=== PATIENT | male | born 1930 | race Caucasian/White ===

== ENCOUNTER 2018-01-09 16:58 | Observation (INO) ==
[2018-01-09] MEDS ORDERED: ALBUTEROL/IPRATROPIUM 2.5mg-0.5mg/3ml NEB AEROSOL ONE (17:26)
[2018-01-09] MEDS ORDERED: BENZONATATE 200 MG CAPSULE PO ONE (17:26)
--- NOTE | 2018-01-09 17:31 | Emergency Department Report ---
URI/Sore Throat HPI - General Chief Complaint: Upper Respiratory Infection Stated Complaint: poss pneumonia Time Seen by Provider: 01/09/18 17:20 Source: patient Mode of arrival: ambulatory Limitations: no limitations - History of Present Illness HPI Narrative: Pt presents with cough for about 4 days. Pt unsure of fever but has had chills. He denies N/V/D but states he has had a decrease in appetite. Denies CP, weakness, or joint pain. He reports he has taken [place], Delsym, cough drops and various other OTC medications with minimal relief. He also reports coug is worse when lying flat. MD Complaint: fever, cough Onset (ago): day(s) Duration: intermittent Severity: moderate Relieving factors: nothing Able to tolerate fluids by mouth: Yes Treatments prior to arrival: "cold medicine", other - Related Data Home Medications Medication Instructions Recorded Confirmed Aspirin [Ecotrin] 81 mg PO DAILY 01/09/18 01/09/18 Multivit-Min/FA/Lycopen/Lutein 1 each PO DAILY 01/09/18 01/09/18 [Centrum Silver Tablet] Pravastatin [Pravachol] 20 mg PO HS 01/09/18 01/09/18 Allergies Allergy/AdvReac Type Severity Reaction Status Date / Time No Known Allergies Allergy Unknown Verified 01/09/18 17:28 Review of Systems All systems: reviewed and negative except as stated Constitutional: Reports: as per HPI Cardiovascular: Reports: as per HPI Respiratory: Reports: as per HPI Gastrointestinal: Reports: as per HPI Musculoskeletal: Reports: as per HPI Neurological: Reports: headache [facility] Medical History (Last Updated 01/09/18 @ 15:42 by NIRAJ Garcia) Heart attack (Chronic Medical) 1982 High cholesterol (Chronic Medical) Macular degeneration (Chronic Medical) Surgical History: *back surgery. * Hernia Repairs x 4 - Left side hernia Family History: Family History (Last Updated 01/09/18 @ 15:44 by NIRAJ Garcia) Brother H/O heart bypass surgery Sister Diabetes mellitus Father CHF (congestive heart failure) - Social History Smoking status: Former smoker Physical Exam Pt verbal appropriate and cooperative with assessment however pt appears to be somewhat SOA when talking and seems uncomfortable sitting on side of bed despite negative verbal responses when asked about particular symptoms - Limitations Limitations: no limitations - General General appearance: alert, in distress - Normal Exams: Head:: Normocephalic without trauma Neck:: Full range of motion, without adenopathy Cardiovascular:: Regular rate and rhythm, without murmur or gallop, Pulses 2+ all extremities Abdomen:: Bowel sounds positive, soft, non-tender, non-distended Musculoskeletal:: No tenderness, or deformity noted, good range of motion, all extremities Integumentary:: No rashes Neurological:: Patient is alert, and oriented, cranial nerves, motor/sensory/ cerebellar, exams w/o gross deficits, to observation Psychiatric:: Patient exhibits, appropriate attention, emotion and affect - Expanded Respiratory Exam Location: Left: rhonchi, Right: rhonchi, Lower: rhonchi Course Vital Signs Temperature 98.3 F 01/09/18 17:02 Pulse Rate 92 01/09/18 17:02 Respiratory Rate 24 01/09/18 17:02 Blood Pressure 147/82 H 01/09/18 17:02 Pulse Oximetry 93 01/09/18 17:02 Temperature 98.3 F 01/09/18 17:02 Pulse Rate 92 01/09/18 17:02 Respiratory Rate 30 H 01/09/18 17:38 Blood Pressure 147/82 H 01/09/18 17:02 Pulse Oximetry 93 01/09/18 17:38 Upper Respiratory Infection - MDM Narrative Medical decision making narrative: Labs, X ray, and EKG reviewed. Pt reports no relief from Duoneb. Post Duoneb assessment shows no change in lung sounds. Pt requiring 1.5 L per NC while at rest. Iv Lasix provided. Influenza negative. Pt to be admitted observation to Dr Briceno for CHF exacerbation. Findings and plan discussed with pt and family who voice agreement and understanding of plan and current treatment. - Differential Diagnosis Differential diagnosis: Likely: upper respiratory infection, sinusitis, viral infection, bronchitis, influenza, pharyngitis - Lab Data Attestation: I reviewed the patient's lab results. Result diagrams: 01/09/18 17:36 01/09/18 17:36 Lab Results 01/09/18 01/09/18 01/09/18 Range/Units 17:36 17:36 18:23 WBC 5.9 (4.5-11.0) T/MM3 RBC 4.38 L (4.50-5.90) M/MM3 Hgb 14.3 (13.5-17.5) GM/DL Hct 43.0 (41-53) % MCV 98.2 (80-100) UM3 MCH 32.6 (26-34) UUG MCHC 33.3 (31-37) GM/DL RDW Std Deviation 46.0 (36.9-50.2) FL Plt Count 178 (130-400) T/MM3 MPV 9.8 (9.4-12.4) UM3 Immature Gran % (Auto) 0.2 (0.0-0.5) % Neut % (Auto) 61.4 (33-66) % Lymph % (Auto) 20.7 L (23-45) % [place] % (Auto) 16.7 H (0-9.0) % Eos % (Auto) 0.3 (0-4) % Baso % (Auto) 0.7 (0-2) % Neut # (Auto) 3.7 (1.8-7.7) T/MM3 Lymph # (Auto) 1.2 (1-4.8) T/MM3 [place] # (Auto) 1.0 H (0-0.8) T/MM3 Eos # (Auto) 0.0 (0-0.5) T/MM3 Baso # (Auto) 0.0 (0-0.2) T/MM3 Abs Immat Gran (auto) 0.01 (0.00-0.03) T/MM3 Turbidity < 20 (0-20) Sodium 145 H (134-144) MEQ/L Potassium 3.5 L (3.6-5) MEQ/L Chloride 101 (98-107) MEQ/L Carbon Dioxide 29 (22-30) MEQ/L Anion Gap 15 (5-15) MEQ/L BUN 11.0 (9-20) MG/DL Creatinine 0.8 (0.8-1.5) MG/DL GFR Calculation 92 BUN/Creatinine Ratio 14 (6-26) RATIO Glucose 124 H (75-110) MG/DL Calculated Osmolality 279 (261-280) MOSM/KG Calcium 9.5 (8.4-10.2) MG/DL Total Bilirubin 0.70 (0.20-1.30) MG/DL Icterus Index < 2 (0-7) AST 40 (17-59) U/L ALT 43 (21-72) U/L Alkaline Phosphatase 66 (38-126) U/L B-Natriuretic Peptide 234 H (0-175) pg/mL Total Protein 8.3 H (6.3-8.2) G/DL Albumin 4.6 (3.5-5.0) G/DL Globulin 3.7 H (2.4-3.6) G/DL Albumin/Globulin Ratio 1.2 (1.1-2.2) RATIO Specimen Hemolysis < 15 (0-25) Influenza Type A (PCR) Negative (Negative) Influenza Type B (PCR) Negative (Negative) - Radiology Data Attestation: I reviewed the patient's radiology results. (read per Dr Davis with perihilar fluid) - EKG Data EKG #1 EKG attestation: Yes: I reviewed and interpreted this EKG. EKG results narrative: old inferior OR, known history EKG shows normal: sinus rhythm Rate: normal Rhythm: NSR Disposition Clinical Impression: Acute exacerbation of CHF (congestive heart failure) Qualifiers: Heart failure type: unspecified Qualified Code(s): I50.9 - Heart failure, unspecified Disposition: 02 To [facility] Acute Care Condition: Improved Prescriptions: No Action Aspirin [Ecotrin] 81 mg PO DAILY Multivit-Min/FA/Lycopen/Lutein [Centrum Silver Tablet] 1 each PO DAILY Pravastatin [Pravachol] 20 mg PO HS Referrals: Josias Nelson MD [Primary Care Provider] - Time of Disposition: 19:20 - Seen By: midlevel
--- OUTSIDE RECORDS SUMMARY | 2018-01-09 18:06 | External Medical Summary | Continuity of Care Document ---
:1930 Author Organization [facility] Allergies Active Description Code Type Severity Reaction Onset Reported/ Identified Relationship Clinical to Patient Status Yes No Known NKMA N/A N/A 02/05/2015 Medication Allergies Medications There is no data. 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 12/03/2016 Josias Nelson Final M25.552 Pain in left hip V 06/03/2017 Josias Nelson E78.2 Mixed hyperlipidemia V 06/03/2017 Josias Nelson Final H35.30 Unspecified macular V degeneration 06/03/2017 Josias Nelson Final I25.10 Atherosclerotic heart V disease of [place] coronary artery without angina pectoris 06/03/2017 Josias Nelson M25.552 Pain in left hip V 06/03/2017 oJsias Nelson Z80.42 Family history of V malignant neoplasm of prostate Procedures Code Description [place] [address] Office or 05/28/2016 other outpatient visit for the evaluation and management of an established patient, which requires at least 2 of these 3 rachel components: A detailed history; A detailed examination; Medical d 73183 Office or 12/03/2016 other outpatient visit for the evaluation and management of an established patient, which requires at least 2 of these 3 rachel components: A detailed history; A detailed examination; Medical d 17046 Office or 06/03/2017 other outpatient visit for the evaluation and management of an established patient, which requires at least 2 of these 3 rachel components: A detailed history; A detailed examination; Medical d Results There is no data. Encounters ACCT No. Visit Discharge Status Pt. Type Provider Facility Loc./Unit Complaint Date/Time [id number] 06/03/2017 06/03/2017 [facility] CRMMP 82 13:12:00 23:59:00 Josias Saez Clinic [id number] 04/19/2017 04/19/2017 [facility], [facility] Wellness 25 14:28:00 23:59:00 Josais Saez Exam Clinic [id number] 12/03/2016 12/03/2016 [facility] Out[facility], [facility] 6 MONTH 58 13:04:00 23:59:00 Josias Saez CHECK Clinic [id number] 05/28/2016 05/28/2016 [facility] Outpatient [facility], [facility] 6mth rck 38 14:49:00 23:59:00 Josias Saez fu from Clinic 1.15.16 [id number] 11/29/2015 11/29/2015 [facility], [facility] NPT EST 98 13:03:00 23:59:00 Josias Saez CARE Clinic TRANSFER FROM DR BURLESON
--- OUTSIDE RECORDS SUMMARY | 2018-01-09 18:06 | External Medical Summary | Referral Summary ---
:1930 [facility] Address [address] [place] [address] [place] [address] Care Team Providers Name Role Phone Josias Nelson V Primary Care Physician Encounter VC Date(s): 12/03/16 - 12/03/16 [facility] [place] [phone] [place] Discharge Diagnosis: CAD (coronary artery disease) Discharge Diagnosis: Left hip pain Discharge Diagnosis: Hyperlipidemia Discharge Disposition: 01-Home or Self Care Attending Physician: Josias Nelson MD Admitting Physician: Josias Nelson MD Vital Signs Most recent to oldest [Reference Range]: 1 Peripheral Pulse Rate [60-100 bpm] 72 bpm (12/03/16 1:10 PM) Blood Pressure [90-140/60-90 mmHg] 120/70 mmHg (12/03/16 1:10 PM) Problem List Condition Effective Dates Status Health Status Informant CAD (coronary artery Active disease)(Confirmed) Cataracts(Confirmed) Active Angina/Chest pain(Confirmed)1981 Active Macular Degeneration(Confirmed) Active Deviated Nasal Septum(Confirmed) Active Dizziness & Active Giddiness(Confirmed) Hypertrophy Nasal Active Turbinates(Confirmed) Hyperlipidemia(Confirmed) Active 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 Unspec(Confirmed) Tinnitus Unspecified(Confirmed) Active 1--- Heart Attack [id number] 1981 Allergies, Adverse Reactions, Alerts No Known Medication Allergies Medications aspirin 81 mg oral tablet mg tabs, Oral, Daily, 0 Refill(s) Start Date: 11/29/15 Status: OrderedCentrum Silver Daily, 0 Refill(s) Start Date: 11/29/15 Status: Orderedpravastatin 20 mg oral tablet 20 mg 1 tabs, Oral, Daily, # 90 tabs, 2 Refill(s), Pharmacy: [id number], 1 tabs Oral Daily Start Date: 05/28/16 Status: Orderedtriamcinolone 0.1% topical cream kezia, Topical, TID, 0 Refill(s) Start Date: 11/29/15 Status: Ordered Results No data available for this section Immunizations No data available for this section Procedures Procedure Date Related Diagnosis Body Site Gall Bladder1 11/29/11 Laparoscopic cholecystectomy 2011 Colonoscopy - normal2 05/01/11 Full Thickness Skin Graft To Left Thumb3 08/15/09 I&D4, 5 08/15/09 Colonoscopy - 1 adenomatous polyp 2005 Arthroscopy right shoulder 2004 left cataract extraction 2002 lumbar laminectomy complicated by wound infection 2001 Colonoscopy - diverticuli 2000 Colonoscopy - hyperplastic polyps 1997 Colonoscopy - 1 adenomatous polyp 1996 Hospitalization6 1981 repeat right inguinal hernia repair 1980 right inguinal hernia repair 1962 left inguinal hernia repair 06/1931 ERCP7, 8 Miscellaneous9 [id number] 1Dr. Mceachern2- CSCOPE WNL, LIKELY NOT REPEAT IN 5 YRS AT AGE 81.3I&D; Full Thickness Skin Graft to Left Amypt0H&D; Full Thickness Skin Graft to Left [id number] inferior GE5IAYO, sphincterotomty 17933QLNU, sphincterotomy 45276Tyxm surg - laminectomy of 3 vertebrae of low back.(15-20 yrs ago, 1989') Hx hernia repair as small child, another about 1962, 2 subsequent surg. Most recent was Scrotal mass removed during one hernia repair -benign. GB removed (within past 10 years.)10ERCP, sphincterotomy 2011 Social History Social History Type Response Smoking Status Former smoker; Type: Cigarettes; Number of years: 35 Assessment and Plan Extracted from: Title: CDM-OV Author: Josias Nelson MD Date: 12/03/16 Impression and Plan Diagnosis CAD (coronary artery disease) (CTH57-WM I25.10, Discharge, Medical). Hyperlipidemia (YXT36-OC E78.2, Discharge, Medical). Orders Orders (Selected) Outpatient Orders Future (On Hold) Fasting Lipid Profile: .
--- OUTSIDE RECORDS SUMMARY | 2018-01-09 18:06 | External Medical Summary | Referral Summary ---
:1930 [facility] Address [address] [place] [address] [place] [phone] Care Team Providers Name Role Phone Josias Nelson V Primary Care Physician Encounter VC Date(s): 11/29/15 - 11/29/15 [facility] [place] [phone] Discharge Diagnosis: Discomfort of left hip Discharge Diagnosis: Age-related macular degeneration, wet, both eyes Discharge Diagnosis: Coronary artery disease Discharge Diagnosis: SCREENING FOR LIPOID DISORDERS Discharge Disposition: 01-Home or Self Care Attending Physician: Josias Nelson MD Admitting Physician: Josias Nelson MD Vital Signs Most recent to oldest [Reference Range]: 1 Temperature Tympanic [36.6-38.1 degC] 36 degC *LOW* (11/29/15 1:15 PM) Peripheral Pulse Rate [60-100 bpm] 77 bpm (11/29/15 1:15 PM) Blood Pressure [90-140/60-90 mmHg] 15/78 mmHg *LOW* (11/29/15 1:15 PM) Problem List No data available for this section Allergies, Adverse Reactions, Alerts No Known Medication Allergies Medications aspirin 81 mg oral tablet mg tabs, Oral, Daily, 0 Refill(s) Start Date: 11/29/15 Status: OrderedCentrum Silver Daily, 0 Refill(s) Start Date: 11/29/15 Status: OrderedNiaspan ER 500 mg oral tablet, extended release 1,000 mg 2 tabs, Oral, Bedtime (once a day), # 180 tabs, 0 Refill(s), Pharmacy: [id number], 2 tabs Oral Bedtime (once a day) Start Date: 09/25/15 Status: Orderedtriamcinolone 0.1% topical cream kezia, Topical, TID, 0 Refill(s) Start Date: 11/29/15 Status: Ordered Results No data available for this section Immunizations No data available for this section Procedures Procedure Date Related Diagnosis Body Site Miscellaneous1 1Back surg - laminectomy of 3 vertebrae of low back.(15-20 yrs ago, ) Hx hernia repair as small child, another about 1963, 2 subsequent surg. Most recent was Scrotal mass removed during one hernia repair -benign. GB removed (within past 10 years.) Social History Social History Type Response Smoking Status Former smoker; Type: Cigarettes; Number of years: 35 Assessment and Plan Extracted from: Title: Get acquainted Author: Josias Nelson MD Date: 11/29/15 Assessment/Plan Age-related macular degeneration, wet, both eyes Coronary artery disease Discomfort of left hip SCREENING FOR LIPOID DISORDERS Overall he seems to be stable and is generally doing well. He desires a conservative approach to care. He has advanced directives and says he would want "no heroic measures". 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 The hip discomfort is a little bit hard to characterize, I'm not sure it's entirely due to the hip joint. Considerations might include ligamentous concerns , radiculopathy, vascular claudication. At thi s point he is getting along pretty well and these had previous investigations without much benefit diagnostically. He was not interested in further workup and we will not do anything further at this point. Similarly, as we discussed coronary artery disease decided not to do any further workup. We will go ahead with a fasting lipid profile to be drawn another day sometime soon, and I suppose consideration of statin therapy if it normal. He will continue on an aspirin daily. Follow-up with me in 6 months or sooner if needed.
--- OUTSIDE RECORDS SUMMARY | 2018-01-09 18:06 | External Medical Summary | Referral Summary ---
:1930 Author [facility] Address [address] [place] [address] [place] [phone] Care Team Providers Name Role Phone Josias Nelson V Primary Care Physician Encounter [facility] [id number] Date(s): 05/28/16 - 05/28/16 [facility] [place] [phone] [place] Discharge Diagnosis: Macular Degeneration Discharge Diagnosis: CAD (coronary artery disease) Discharge Diagnosis: Hyperlipidemia Discharge Disposition: 01-Home or Self Care Attending Physician: Josias Nelson MD Admitting Physician: Josias Nelson MD Vital Signs Most recent to oldest [Reference Range]: 1 Temperature Tympanic [36.6-38.1 degC] 35.4 degC *LOW* (05/28/16 3:13 PM) Peripheral Pulse Rate [60-100 bpm] 74 bpm (05/28/16 3:13 PM) Blood Pressure [90-140/60-90 mmHg] 119/77 mmHg (05/28/16 3:13 PM) Problem List Condition Effective Dates Status Health Status Informant CAD (coronary artery Active disease)(Confirmed) Cataracts(Confirmed) Active Angina/Chest pain(Confirmed)1981 Active Macular Degeneration(Confirmed) Active Deviated Nasal Septum(Confirmed) Active Dizziness & Active Giddiness(Confirmed) Hyperlipidemia(Confirmed) Active Hypertrophy Nasal Active Turbinates(Confirmed) Inferior ME(Confirmed)2 Active Sensorineural Hearing Loss Active Unspec(Confirmed) Tinnitus Unspecified(Confirmed) Active 1--- Heart Attack [id number] 1981 Allergies, Adverse Reactions, Alerts No Known Medication Allergies Medications aspirin 81 mg oral tablet mg tabs, Oral, Daily, 0 Refill(s) Start Date: 11/29/15 Status: OrderedCentrum Silver Daily, 0 Refill(s) Start Date: 11/29/15 Status: Orderedpravastatin 20 mg oral tablet 20 mg 1 tabs, Oral, Daily, # 90 tabs, 2 Refill(s), Pharmacy: [facility], 1 tabs Oral Daily [...] inguinal hernia repair 06/1931 ERCP7, 8 Miscellaneous9 [id number] 1Dr. Mceachern2- CSCOPE WNL, LIKELY NOT REPEAT IN 5 YRS AT AGE 81.3I&D; Full Thickness Skin Graft to Left Axzoo1S&D; Full Thickness Skin Graft to Left [id number] inferior CK7DAZW, sphincterotomty 48633LYCP, sphincterotomy 35516Bgft surg - laminectomy of 3 vertebrae of [...] Assessment and Plan Extracted from: Title: CDM-OV * Author: Josias Nelson MD Date: 05/28/16 Impression and Plan Diagnosis CAD (coronary artery disease) (QFH35-FF I25.10, Discharge, Medical). Hyperlipidemia (EPP79-KQ E78.5, Discharge, Medical). Macular Degeneration (WTJ60-VO H35.30, Discharge, Medical). Dx/Order Association Plan
[2018-01-09] MEDS ORDERED: FUROSEMIDE 20 MG/2 ML INJECTION IVP ONE (19:05)
[2018-01-09] MEDS: SALINE FLUSH 10ml SYRINGE IVF PRN (19:11)
--- NOTE | 2018-01-09 19:18 | XRay Report ---
Indication: cough, fever XR chest 2V: Comparison: 11/29/2011 Technique: PA and lateral chest Findings: Patient continues to show similar heart size to the 2012 study. No new focal prequel consolidations are identified although there are just slightly heavier basilar markings present. Region continues to show minimal thickening along the minor fissure. Findings suggest chronic changes. No pleural effusions are noted. No significant congestive changes suggested. Degenerative changes persist in the mid and lower thoracic spine with bridging osteophytes and disc space narrowing. Impression: Overall patient continues to show similar chronic basilar changes some with no superimposed acute new findings. .
[2018-01-09 19:57] VITALS: BMI 31.0
[2018-01-09] MEDS ORDERED: ACETAMINOPHEN 325 MG TABLET PO PRN (20:38)
--- NOTE | 2018-01-09 20:39 | History & Physical Report ---
History of Present Illness Date: 01/09/18 Chief complaint: cough HPI: 87 yo M with PMH of CAD, HLD and distant [place] presented to the ED with worsening cough and orthopnea for 4 days. Patient has taken mulitple OTC medications with no relief. He reports every time he lies down he begins to cough, and he has not been able to sleep well for 4 days. He has tried sleeping in a chair with minimal relief. He denies fever/chills or productive cough. 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 denies CP associated with his symptoms. CXR in the ED showed some pulm congestion and he had a mildly elevated BNP. He was given 20mg IV lasix and admitted for observation. 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 * Hernia Repairs x 4 - Left side hernia Family History: Family History (Last Updated 01/09/18 @ 15:44 by NIRAJ Garcia) Brother H/O heart bypass surgery Sister Diabetes mellitus Father CHF (congestive heart failure) Family History Updates: reviewed - Social History Smoking status: Former smoker Medications Home Medications Medication Instructions Recorded Confirmed Type Aspirin [Ecotrin] 81 mg PO DAILY 01/09/18 01/09/18 History Multivit-Min/FA/Lycopen/Lutein 1 each PO DAILY 01/09/18 01/09/18 History [Centrum Silver Tablet] Pravastatin [Pravachol] 20 mg PO HS 01/09/18 01/09/18 History Allergies Allergy/AdvReac Type Severity Reaction Status Date / Time No Known Allergies Allergy Unknown Verified 01/09/18 17:28 Exam Vital Signs: Temperature 98.9 F 01/09/18 19:58 Pulse Rate 95 01/09/18 19:58 Respiratory Rate 26 H 01/09/18 19:58 Blood Pressure 143/75 H 01/09/18 19:58 Pulse Oximetry 93 01/09/18 19:58 Height/Weight/BMI: Height 1.8 m Weight 101 kg Body Mass Index 31.0 - Constitutional Present: mild distress (due to cough) - Routine Respiratory Exam Present: CTA bilaterally. Absent: wheezes - Routine Cardiovascular Exam Present: RRR. Absent: murmur - Routine Abdominal Exam Present: soft, normoactive bowel sounds, non distended. Absent: tenderness - Routine Skin Exam Present: dry, warm - Routine Neurological Exam Present: alert, oriented X3, CN II-XII intact - Routine Psychiatric Exam Present: normal affect Results - Labs CBC & Chem 7: 01/09/18 17:36 01/09/18 17:36 Assessment and Plan (1) Acute exacerbation of CHF (congestive heart failure) Current visit: Yes Status: Acute Assessment and Plan: admit and give gentle diuresis. Check ECHO in Am. Patient is not on an ACEI or any medications to cause a cough. Will monitor UOP and kidney function. Order PRN cough medications. DVT Prophylaxis: SCD's Resuscitation Status: Full Code - Physician Narrative Narrative: Date: 01/09/18 Time: 2035 Hospital Course Summary Disclaimer: The visit summary below is not to be considered part of the above Progress Note.
[2018-01-09] MEDS ORDERED: GUAIFENESIN/CODEINE 5ml ORAL LIQUID PO PRN (20:43)
[2018-01-09] MEDS ORDERED: BENZONATATE 100 MG CAPSULE PO PRN (20:43)
[2018-01-09] MEDS ORDERED: PRAVASTATIN 20 MG TABLET PO SCH (21:00)
[2018-01-10] MEDS: FUROSEMIDE 20 MG/2 ML INJECTION IVP SCH ×2 (00:10→10:03)
[2018-01-10] MEDS ORDERED: ASPIRIN *EC* 81 MG TABLET PO SCH (09:00)
[2018-01-10] MEDS: SALINE FLUSH 10ml SYRINGE IVF PRN (10:03)
[2018-01-10 15:20] VITALS: BP 114/69; PULSE 79; RESP 20; TEMP 98; O2SAT 92
--- NOTE | 2018-01-10 18:00 | Progress Note ---
- Date 01/10/18 Subjective: F/U: Cough, URI, Hypokalemia Doing okay this evening. 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 Breathing well- maintaining saturations well on RA. Eating well. Has been up and ambulated without problems. Objective Vital signs: Temperature 98.0 F 01/10/18 15:19 Pulse Rate 79 01/10/18 15:19 Respiratory Rate 20 01/10/18 15:19 Blood Pressure 114/69 01/10/18 15:19 Pulse Oximetry 92 01/10/18 15:19 Height/Weight/BMI: Height 1.8 m Weight 99.8 kg Body Mass Index 31.0 - Constitutional Present: well nourished, well developed, cooperative - Routine HEENT Exam Head: Present: normocephalic, atraumatic Eye: Present: EOMI, PERRL ENT: Present: mucous membranes moist - Routine Respiratory Exam Present: decreased breath sounds. Absent: respiratory distress - Routine Cardiovascular Exam Present: RRR - Routine Abdominal Exam Present: soft, normoactive bowel sounds, non distended, non tender - Routine Extremities Exam Present: no edema, pulses intact. Absent: cyanosis, clubbing - Routine Musculoskeletal Exam Musculoskeletal: Present: no clubbing or cyanosis, normal strength - Routine Skin Exam Present: dry, warm - Routine Neurological Exam Present: alert, oriented X3, CN II-XII intact, moving all extremities, vision grossly intact, hearing grossly intact, normal speech. Absent: motor deficit, altered mental status - Routine Psychiatric Exam Present: normal affect, normal thought process, cooperative Results - Labs CBC & Chem 7: 01/10/18 04:46 01/10/18 04:46 Assessment and Plan (1) Acute exacerbation of CHF (congestive heart failure) Current visit: Yes Status: Acute Assessment and Plan: Assessment Cough - uncertain etiology. Potential for CHF exists with his Hx of CAD and symptoms, CXR without evidence of overload. Possible viral syndrome exacerbating URI - Parainfluenza positive Hypokalemia (POA) Hypernatremia (POA) Fatigue CAD HDL MD Plan Lasix stopped - CXR not showing evidence of heart failure and do not want to overdiuresis with Parainfluenza infection. Dr Corrales discussed preliminary ECHO finding with ct - no outstanding abnormalities, but has not done full read. Cough decreasing with supportive care. Resp panel positive for Parainfluenza. With symptoms improving, can discharge to home. Symptomatic control for cough - Could use Robitussin DM for minor cough, with Tesselon Perles/Robitussin AC for more pronounced cough. Continue home medications Recommend outpatient Cardiac evaluation in near future - likely Dr Zarco. F/U with Dr Nelson in 1 week See orders for details. DVT Prophylaxis: SCD's Resuscitation Status: Full Code - Physician Narrative Physician: Pete Hernandez MD Narrative: Date: 01/10/18 Time: 1756 Hospital Course Summary Disclaimer: The visit summary below is not to be considered part of the above Progress Note. Hospital Course: 01/09/17 Admit to OBS and give gentle diuresis - Lasix 20mg IV q8 hours. Check ECHO in Am. Patient is not on an ACEI or any medications to cause a cough. Will monitor UOP and kidney function. Order PRN cough medications. 01/10/17 Lasix stopped - CXR not showing evidence of heart failure and do not want to overdiuresis with Parainfluenza infection. Dr Corrales discussed preliminary ECHO finding with ct - no outstanding abnormalities, but has not done full read. Cough decreasing with supportive care. Resp panel positive for Parainfluenza. With symptoms improving, can discharge to home. Symptomatic control for cough - Could use Robitussin DM for minor cough, with Tesselon Perles/Robitussin AC for more pronounced cough. Continue home medications Recommend outpatient Cardiac evaluation in near future - likely Dr Zarco. F/U with Dr Nelson in 1 week See orders for details.
--- NOTE | 2018-01-10 21:53 | Discharge Summary ---
Discharge Information Date of admission: 01/09/18 19:20 Anticipated date of discharge: 01/10/18 Attending Physician: Pete Hernandez MD Primary care physician: Josias Nelson MD - Discharge Diagnosis (1) Acute exacerbation of CHF (congestive heart failure) Status: Suspected Admission diagnosis CHF Discharge diagnosis URI - Parainfluenza positive Associate conditions and complications Cough - most likely secondary to parainfluenza. Potential for CHF exists with his Hx of CAD and symptoms, CXR without evidence of overload. Hypokalemia (POA) Hypernatremia (POA) Fatigue CAD HDL MD - Laboratory Labs: Admit Lab 01/09/18 17:36 WBC 5.9 Hgb 14.3 Hct 43.0 MCV 98.2 Plt Count 178 Neut % (Auto) 61.4 Lymph % (Auto) 20.7 L [place] % (Auto) 16.7 H Eos % (Auto) 0.3 Baso % (Auto) 0.7 Admit Lab 01/09/18 17:36 Sodium 145 H Potassium 3.5 L Chloride 101 Carbon Dioxide 29 Anion Gap 15 BUN 11.0 Creatinine 0.8 GFR Calculation 92 BUN/Creatinine Ratio 14 Glucose 124 H Calculated Osmolality 279 Total Bilirubin 0.70 AST 40 ALT 43 Alkaline Phosphatase 66 B-Natriuretic Peptide 234 H Total Protein 8.3 H Albumin 4.6 Albumin/Globulin Ratio 1.2 Other Lab 01/10/18 04:46 Troponin I 0.023 TSH 1.19 Respiratory panel 01/10/18 12:30 Parainfluenza 3 (PCR) Detected A* 01/10/18 04:46 01/10/18 04:46 - Radiology Radiology: Date of Exam: 01/09/18 Type of Exam: XR chest 2V Findings: Patient continues to show similar heart size to the 2012 study. No new focal prequel consolidations are identified although there are just slightly heavier basilar markings present. Region continues to show minimal thickening along the minor fissure. Findings suggest chronic changes. No pleural effusions are noted. No significant congestive changes suggested. Degenerative changes persist in the mid and lower thoracic spine with bridging osteophytes and disc space narrowing. Impression: Overall patient continues to show similar chronic basilar changes some with no superimposed acute new findings. History of Present Illness HPI: 87 yo M with PMH of CAD, HLD and distant MA presented to the ED with worsening cough and orthopnea for 4 days. Patient has taken multiple OTC medications with no relief. He reports every time he lies down he begins to cough, and he has not been able to sleep well for 4 days. He has tried sleeping in a chair with minimal relief. He denies fever/chills or productive cough. 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 denies CP associated with his symptoms. CXR in the ED showed some pulm congestion and he had a mildly elevated BNP. He was given 20mg IV Lasix and admitted for observation. For complete details of the H&P refer to that document. Objective Vital signs: Temperature 98.0 F 01/10/18 15:19 Pulse Rate 79 01/10/18 15:19 Respiratory Rate 20 01/10/18 15:19 Blood Pressure 114/69 01/10/18 15:19 Pulse Oximetry 92 01/10/18 15:19 Height/Weight/BMI: Height 1.8 m Weight 99.8 kg Body Mass Index 31.0 Hospital Course This is a general summary of the patient's hospital course. For more details refer to the complete medical record. Hospital course: 01/09/17 Admit to OBS and give gentle diuresis - Lasix 20mg IV q8 hours. Check ECHO in Am. Patient is not on an ACEI or any medications to cause a cough. Will monitor UOP and kidney function. Order PRN cough medications. 01/10/17 Lasix stopped - CXR not showing evidence of heart failure and do not want to overdiuresis with Parainfluenza infection. Dr Corrales discussed preliminary ECHO finding with [place] - no outstanding abnormalities, but has not done full read. Cough decreasing with supportive care. Resp panel positive for Parainfluenza. With symptoms improving, can discharge to home. Symptomatic control for cough - Could use Robitussin DM for minor cough, with Tessalon Perles/Robitussin AC for more pronounced cough. Continue home medications Recommend outpatient Cardiac evaluation in near future - likely Dr Zarco. F/U with Dr Nelson in 1 week See orders for details. Time spent with patient: discharge greater than 30 minutes Resuscitation Status: Full Code Discharge Plan - Discharge Disposition Discharge Date: 01/10/18 Disposition: Discharged Home, Self-Care *Condition: Improved Reason For Visit (Visit label in EMR): Cough, dyspnea - Discharge Medications *Discharge Medications: New Guaifenesin/Codeine Phosphate [Guaifenesin-Codeine Syrup] 5 ml PO Q4H PRN # 150 ml PRN Reason: Cough /Congestion Benzonatate [Tessalon Perles] 100 mg PO TID PRN #30 cap PRN Reason: Cough Guaifenesin/Dm Oral Liq [Robitussin Dm] 5 ml PO Q4HR PRN #1 bottle PRN Reason: Cough Continue Aspirin [Ecotrin] 81 mg PO DAILY Multivit-Min/FA/Lycopen/Lutein [Centrum Silver Tablet] 1 each PO DAILY Pravastatin [Pravachol] 20 mg PO HS - Discharge Packet/Instructions *Diet: Heart Healthy *Activity: As tolerated *Pain Management/Treatment: Tylenol as needed for discomfort *Wound Care: N/A Additional Instructions: Use Acapella 4 times a day to help loose phlemn and secretions. Use Incentive Spirometer 4 times a day to help keep lungs expanded. *Expected Signs/Symptoms: Decrease of cough and congestion. *Notify Physician if: Temp >100.4. Increasing shortness of breathin. Chest pain. *During Business Hours Contact: Dr Nelson *After Business Hours Contact: Call [facility] [place] and have Dr Nelson or his covering provider contacted. *Pending Lab/Results: Follow up w/Provider (Full ECHO report pending. Preliminary looks ok.) - Referrals/Follow Up *Referrals/Follow Up: Michaela Zarco MD [Physician] - 2 Weeks (Hospital follow up-establish cardiac care (CAD with remote Hx MA) - ? CHF. See patient in [facility]. ) Josias Nelson MD [Primary Care Provider] - 1 Week (Hospital follow up for Parainfluenza infection with cough. Recommend Cardiac follow up with Dr Zarco ) - Patient Handouts Patient Handouts: Dyspnea (GEN), Acute Cough (GEN) - Dismissal Complete Discharge Instructions are:: Complete Physician Narrative - Narrative Physician: Pete Hernandez MD Attestation Narrative: Date: 01/10/18 Time: 2149 I have independently interviewed and examined patient prior to discharge. See H& P and progress note for details. Medically stable for discharge to home.
--- NOTE | 2018-01-11 09:27 | Echocardiogram ---
DATE 01/10/2018 INDICATION FOR THE PROCEDURE Congestive heart failure TECHNICAL QUALITY: Technically good 2D, M-mode and Doppler echocardiographic images were submitted for interpretation. FINDINGS 1. CARDIAC CHAMBERS. Left atrium is borderline enlarged. Aortic root diameter is mildly increased, measures 3.9 cm. RV size and contractility appear normal. 2. LV FUNCTION. Visually, LV wall thickness appears to be upper normal range. Measurements obtained by desktop support technician of 13 mm in the posterior wall and 14 mm in septal wall are more suggestive of a mild concentric LVH. Wall motion analysis is abnormal. There is evidence of a wide inferoposterior myocardial infarction which appears to stand out and echogenic suggestive of a scar. The basal inferior/posterior wall appears aneurysmal. I don't see any clot. [place] appears mildly hypokinetic. I don't see any definite clot in the distribution. Anterior and lateral wall contraction appears normal. LV systolic dysfunction of a mild degree appears to be present. Ejection fraction visually is estimated about 40-45%. E/A ratio is 0.8 suggestive of mild diastolic dysfunction. E/E' remains normal at 8.6. MVDT 310 is mildly increased. 3. VALVES. Aortic valve exhibits sclerotic changes, valve opening appears preserved. Mitral valve exhibits annular calcification posteriorly. Valve excursion is normal. Tricuspid valve structure and motion appear normal with normal valve excursion. 4. DOPPLER. Doppler shows mild aortic regurgitation. No aortic stenosis. Trace mitral regurgitation and mild tricuspid regurgitation. Systolic PA pressure is estimated at 40 mmHg bases on Bernoulli equation. IVC as seen on limited view, appears to have a normal size and contractility suggestive of normal central venous pressure. The view is quite limited however. 5. Subcostal images are technically difficult. No evidence of intracardiac masses, thrombi, vegetations, or shunts. IMPRESSION 1. Borderline left atrial enlargement. 2. 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 3. Mild concentric LVH. 4. 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 5. Mild diastolic dysfunction. 6. Aortic valve sclerosis with mild insufficiency and no stenosis. 7. Tricuspid regurgitation. 8. Mild pulmonary hypertension. 9. Mitral annular calcification with trace regurgitation and no stenosis. 10. Mild diastolic dysfunction, may be normal in patient's age group. MTDD
== END 2018-01-10 18:50 | disposition home or self-care (01) ==
LOC: ED 16:58 → MED 16:58
PROVIDERS: ADMIT Internal Medicine; ATTEND Hospitalist